=== PATIENT | male | born 1960 | race African-American/Black ===

== ENCOUNTER → 2021-01-11 | Outpatient (CLI) | payer BC ==
[2021-01-11 11:30] LABS: HEMATOCRIT 42.6 % (42.0-52.0); MEAN CORPUSCULAR HGB 29.1 pg (27.0-31.0); MEAN CORPUSCULAR HGB CONC 31.9 g/dl (33.0-37.0); MEAN PLATELET VOLUME 8.7 fl (9.6-12.3); RED BLOOD COUNT 4.68 10*6/uL (4.50-5.90); RED CELL DISTRI WIDTH 12.4 % (0-14.5); WHITE BLOOD COUNT 3.3 10*3/uL (4.8-10.8)
[2021-01-11 12:02] LABS: ALBUMIN 4.3 gm/dl (3.1-4.5); BUN 17 mg/dl (7-24); CHLORIDE 104 mmol/L (98-107); CHOLESTEROL 176 mg/dL (<200); CREATININE 0.95 mg/dL (0.70-1.30); POTASSIUM 3.9 mmol/L (3.5-5.1); SGOT/AST 16 IU/L (3-35); SGPT/ALT 26 U/L (12-78); SODIUM 139 mmol/L (136-145); TOTAL PROTEIN 8.6 gm/dL (6.4-8.2); TRIGLYCERIDES 64 mg/dl (<150); VLDL CHOLESTEROL 13 mg/dL (6-40)
[2021-01-11 12:06] LABS: ALKALINE PHOSPHATASE 55 U/L (45-117); HDL CHOLESTEROL 56 mg/dl (40-60); LDL CHOLESTEROL 107 mg/dL (9-159)
== END | disposition home or self-care (01) ==
LOC: LAB 10:31
PROVIDERS: ATTEND Family Medicine
DX: R05 Cough (principal); R06.2 Wheezing; Z12.5 Encounter for screening for malignant neoplasm of prostate; Z13.220 Encounter for screening for lipoid disorders

== ENCOUNTER → 2021-01-27 | Outpatient (CLI) | payer BC ==
[2021-01-28 02:05] LABS: TOTAL PROTEIN, SERUM 7.9 g/dL (6.0-8.5)
[2021-01-28 15:06] LABS: A/G RATIO 1.2 (0.7-1.7); ALBUMIN 4.3 g/dL (2.9-4.4); ALPHA-1-GLOBULIN 0.2 g/dL (0.0-0.4); ALPHA-2-GLOBULIN 0.7 g/dL (0.4-1.0); BETA GLOBULIN 1.3 g/dL (0.7-1.3); GAMMA GLOBULIN 1.4 g/dL (0.4-1.8); GLOBULIN, TOTAL 3.6 g/dL (2.2-3.9); M-SPIKE Not Observed g/dL (Not Observed)
[2021-01-31 14:06] LABS: ALBUMIN, URINE 27.1 % (.); ALPHA-1-GLOBULIN, URINE 7.2 % (.); ALPHA-2-GLOBULIN, URINE 19.2 % (.); BETA GLOBULIN, URINE 25.3 % (.); GAMMA GLOBULIN, URINE 21.3 % (.); M-SPIKE, % Not Observed % (Not Observed); PROTEIN,TOTAL - URINE RANDOM 8.2 mg/dL (Not Estab.)
== END | disposition home or self-care (01) ==
LOC: LAB 09:45
PROVIDERS: ATTEND Family Medicine
DX: E88.09 Other disorders of plasma-protein metabolism, not elsewhere classified (principal)